=== PATIENT | female | born 1995 | race Caucasian/White ===

== ENCOUNTER 2017-01-12 22:03 | Emergency (ER) | payer OTHER ==
[2017-01-12 22:16] VITALS: BMI 23.3
--- NOTE | 2017-01-12 22:27 | PDOC ---
History of Present Illness - General History Source: Patient <Kenn Erickson - Last Filed: 01/13/17 01:09> - General History Source: Patient Exam Limitations: No Limitations - History of Present Illness Initial Comments: 01/12/17 22:35 The patient is a 21 year old female () with no significant past medical history who presents to the ED for 1 day of vaginal bleeding. Patient reports her LMP was November 01. States she noted vaginal bleeding yesterday. She was seen at an outside hospital yesterday where she had a vaginal ultrasound done and was told they did not visualize a fetus. Patient presents here today because her vaginal bleeding has slightly increased with slightly pelvic pain. Denies vaginal discharge. Denies nausea, vomiting, or diarrhea. Patient has not followed-up with OPERATIONS EXECUTIVE yet. The patient denies fever, chills, cough, SOB, chest pain, and palpitations. Allergies: NKDA Social History: No alcohol, tobacco, or drug use reported. Past Surgical History: None reported PCP: Dr. Cynthia Pitts <Rosalinda Mojica - Last Filed: 01/13/17 01:10> - General Chief Complaint: Vaginal Bleeding Stated Complaint: VAGINAL BLEEDING/7 WKS Time Seen by Provider: 01/12/17 22:24 Past History - Past Medical History Other medical history: Pt denies - Psycho/Social/Smoking Cessation Hx Suicidal Ideation: No Smoking History: Never smoked Information on smoking cessation initiated: No Hx Alcohol Use: No Drug/Substance Use Hx: No Substance Use Type: None <Kenn Erickson - Last Filed: 01/13/17 01:09> <Rosalinda Mojica - Last Filed: 01/13/17 01:10> - Past Medical History Allergies/Adverse Reactions: Allergies Allergy/AdvReac Type Severity Reaction Status Date / Time No Known Allergies Allergy Verified 01/12/17 22:12 Home Medications: Ambulatory Orders NK [No Known Home Medication] 01/12/17 Review of Systems - Review of Systems Able to Perform ROS?: Yes Comments:: 01/12/17 22:36 CONSTITUTIONAL: Absent: fever, no chills, no fatigue EYES: Absent: visual changes ENT: Absent: ear pain, no sore throat CARDIOVASCULAR: Absent: chest pain, no palpitations RESPIRATORY: Absent: cough, no SOB GI: +pelvic pain Absent: no nausea, no vomiting, no constipation, no diarrhea GENITOURINARY: +vaginal bleeding Absent: dysuria, no frequency, no hematuria MUSCULOSKELETAL: Absent: back pain, no arthralgia, no myalgia SKIN: Absent: rash NEURO: Absent: headache <Rosalinda Mojica - Last Filed: 01/13/17 01:10> *Physical Exam - Vital Signs Last Vital Signs Temp Pulse Resp BP Pulse Ox 97.6 F 79 19 125/72 100 01/12/17 22:12 01/12/17 22:12 01/12/17 22:12 01/12/17 22:12 01/12/17 22:12 <Kenn Erickson - Last Filed: 01/13/17 01:09> - Vital Signs Last Vital Signs Temp Pulse Resp BP Pulse Ox 97.6 F 79 19 125/72 100 01/12/17 22:12 01/12/17 22:12 01/12/17 22:12 01/12/17 22:12 01/12/17 22:12 - Physical Exam Comments: 01/12/17 22:36 GENERAL: Well-appearing, well-nourished. No apparent distress. HEENT: Normocephalic, atraumatic. PERRL, EOM intact. CARDIOVASCULAR: Normal S1, S2. Regular rate and rhythm. PULMONARY: Clear to auscultation bilaterally. ABDOMEN: Soft, non-distended, non-tender. No rebound or guarding. PELVIC: Deferred to ultrasound. EXTREMITIES: Normal ROM in all four extremities. No gross deformities. SKIN: Warm, dry. No rash NEUROLOGICAL: No focal neurological deficits. <Rosalinda Mojica - Last Filed: 01/13/17 01:10> ED Treatment Course - LABORATORY CBC & Chemistry Diagram: 01/12/17 22:40 01/12/17 22:30 <Kenn Erickson - Last Filed: 01/13/17 01:09> - LABORATORY CBC & Chemistry Diagram: 01/12/17 22:40 01/12/17 22:30 - RADIOLOGY Radiograph Interpretation: 01/13/17 00:53 EXAM: Ultrasound OB transabdominal ultrasound OB transvaginal and duplex evaluation of the ovaries Reviewed by Imaging ammonium nitrate neutralizer: FINDINGS: There is an intrauterine gestational sac with small pole with crown rump length measurement of 0.54 cm corresponding to 6 weeks 2 days gestation. No heart motion detected at this time which may be due to early gestation. Recommend followup viability study. No evidence for ovarian torsion. <Rosalinda Mojica - Last Filed: 01/13/17 01:10> Medical Decision Making - Medical Decision Making 01/13/17 01:08 Dr. Erickson: The scribe's documentation has been prepared under my direction and personally reviewed by me in its entirery. I confirm that the note above accurately reflects all work, treatment, procedures, and medical decision making performed by me. Patient advised to follow-up ultrasound and hormone levels. <Kenn Erickson - Last Filed: 01/13/17 01:09> *DC/Admit/Observation/Transfer - Discharge Dispostion Admit: No <Kenn Erickson - Last Filed: 01/13/17 01:09> - Attestations Scribe Attestion: 01/13/17 01:09 Documentation prepared by Rosalinda Mojica, acting as medical planner for Kenn Erickson MD/DO. <Rosalinda Mojica - Last Filed: 01/13/17 01:10> Diagnosis at time of Disposition: Vaginal bleeding before 22 weeks gestation, Threatened - Discharge Dispostion Disposition: HOME - Referrals Referrals: Cynthia Casanova MD [Primary Care Provider] - Milo Diaz MD [Staff Physician] - - Patient Instructions Printed Discharge Instructions: DI for Threatened Additional Instructions: Please follow up with your parcel post officer in two days for re-evaluation of hormone and sonogram. Print Language: TELUGU
[2017-01-12 22:47] LABS: BASOPHIL 0.5 % (0-2.0); EOSINOPHIL 1.6 % (0-4.5); MCH 29.2 pg (25.7-33.7); MCHC 32.3 g/dl (32.0-36.0); MEAN CELL VOLUME 90.5 fl (80-96); MEAN PLT VOLUME 8.7 fl (7.5-11.1); NEUTROPHILS 71.7 % (42.8-82.8); PLATELET COUNT 341 K/MM3 (134-434); RDW 13.7 % (11.6-15.6); WHITE BLOOD COUNT 11.2 K/mm3 (4.0-10.0)
[2017-01-12 23:09] LABS: ALBUMIN 3.7 g/dl (3.4-5.0); ANION GAP 12 (8-16); CALCIUM 9.1 mg/dL (8.5-10.1); CO2 24 mmol/L (21-32); CREATININE 0.6 mg/dL (0.55-1.02); GLUCOSE,RANDOM 89 mg/dL (74-106); SGOT/AST 17 U/L (15-37); SGPT/ALT 26 U/L (12-78)
[2017-01-12 23:26] LABS: ALK PHOS 79 U/L (45-117); BILIRUBIN,TOTAL 0.6 mg/dL (0.2-1.0); TOT PROT 7.6 g/dl (6.4-8.2)
[2017-01-13 01:18] VITALS: BP 112/73; PULSE 84; TEMP 98.3
== END 2017-01-13 01:19 | disposition home or self-care (01) ==
LOC: JER 22:03
DX: O20.0 Threatened abortion (principal); Z3A.01 Less than 8 weeks gestation of pregnancy
CPT/HCPCS: 36415; 76817-TC; 80053; 84702; 85025; 86850; 86900; 86901; 99281-25

== ENCOUNTER 2020-02-25 23:01 | Emergency (ER) | payer OTHER ==
[2020-02-25 23:06] VITALS: BMI 27.3
--- NOTE | 2020-02-25 23:11 | PDOC ---
History of Present Illness - General Chief Complaint: Bite Stated Complaint: BUG BITE Time Seen by Provider: 02/25/20 23:07 History Source: Patient - History of Present Illness Initial Comments: 02/25/20 23:07 24 year old insect bite to the left forearm 4 DAYS AGO REPORTS REDNESS AND PAIN TO THE site. denies fever/ chills, no pmhx Past History - Medical History Allergies/Adverse Reactions: Allergies Allergy/AdvReac Type Severity Reaction Status Date / Time No Known Allergies Allergy Verified 01/12/17 22:12 Home Medications: Ambulatory Orders Cephalexin Monohydrate [Keflex -] 500 mg PO Q8H #30 capsule 02/25/20 Sulfamethoxazole/Trimethoprim [Bactrim Ds -] 1 tab PO BID #20 tablet 02/25/20 COPD: No - Psycho-Social/Smoking History Smoking History: Never smoked - Substance Abuse Hx (Audit-C & DAST Scrn) How often the patient has a drink containing alcohol: Never Score: In Men: 4 or > Positive; In Women: 3 or > Positive: 0 Screen Result (Pos requires Nsg. Audit-10AR): Negative In the last yr the pt used illegal drug/Rx for NonMed reason: No Score: Yes response is considered Positive: 0 Screen Result (Positive result requires Nsg. DAST-10): Negative Review of Systems - Review of Systems Able to Perform ROS?: Yes Is the patient limited Citizen Of [place] proficient: No Integumentary: Yes: Other (insect bite) *Physical Exam - Vital Signs Last Vital Signs Temp Pulse Resp BP Pulse Ox 100 F H 69 19 131/73 100 02/25/20 23:03 02/25/20 23:03 02/25/20 23:03 02/25/20 23:03 02/25/20 23:03 - Physical Exam General Appearance: Yes: Appropriately Dressed Integumentary: positive: Other (insect bite to l;eft forearm. warm to touch, no streaking, no foreign body ) Neurologic: positive: Fully Oriented, Alert, Normal Mood/Affect ED Progress Note - Progress Note Progress Note: 02/26/20 06:00 A: cellulitis left forearm P: cephalexin/ bactrim ibuprofen PCP follow up in 2 days. Discharge - Discharge Information Problems reviewed: Yes Clinical Impression/Diagnosis: Insect bite Qualifiers: Encounter type: initial encounter Site of insect bite: forearm Laterality: left Qualified Code(s): S50.862A - Insect bite (nonvenomous) of left forearm, initial encounter Infected insect bite Qualifiers: Encounter type: initial encounter Qualified Code(s): W57.XXXA - Bitten or stung by nonvenomous insect and other nonvenomous arthropods, initial encounter Disposition: HOME - Additional Discharge Information Prescriptions: Sulfamethoxazole/Trimethoprim [Bactrim Ds -] 1 tab PO BID #20 tablet Cephalexin Monohydrate [Keflex -] 500 mg PO Q8H #30 capsule - Follow up/Referral - Patient Discharge Instructions Patient Printed Discharge Instructions: DI for Insect Bites and Stings Additional Instructions: apply warm compress to the area take cephalexin as prescribed follow up with your doctor in 2 days for a wound check return to the ER for any worsening symptoms./ - Post Discharge Activity
[2020-02-25] MEDS ORDERED: CEPHALEXIN MONOHYDRATE 500 MG CAPSULE (UD) PO ONE (23:18)
[2020-02-25] MEDS ORDERED: ACETAMINOPHEN 325 MG TABLET (FP) PO ONE (23:18)
[2020-02-25] MEDS ORDERED: SULFAMETHOXAZOLE/TRIMETHOPRIM 800MG/160MG D.S. TABLET PO ONE (23:41)
[2020-02-25] MEDS ORDERED: CEPHALEXIN MONOHYDRATE 500 MG CAPSULE (UD) ONE (23:50)
[2020-02-25] MEDS ORDERED: ACETAMINOPHEN 325 MG TABLET (FP) ONE (23:50)
[2020-02-25] MEDS ORDERED: SULFAMETHOXAZOLE/TRIMETHOPRIM 800MG/160MG D.S. TABLET ONE (23:51)
[2020-02-26 00:32] VITALS: BP 116/75; PULSE 70; TEMP 98.4
== END 2020-02-25 23:57 | disposition home or self-care (01) ==
LOC: JER 23:01
DX: S50.862A Insect bite (nonvenomous) of left forearm, initial encounter (principal); W57.XXXA Bitten or stung by nonvenomous insect and other nonvenomous arthropods, initial encounter
CPT/HCPCS: 99283-25

== ENCOUNTER 2020-02-29 01:51 | Emergency (ER) | payer OTHER ==
[2020-02-29 02:23] VITALS: BP 127/70; PULSE 97; TEMP 99.5; BMI 32.7
--- NOTE | 2020-02-29 03:03 | PDOC ---
History of Present Illness - General Chief Complaint: Cold Symptoms Stated Complaint: FEVER History Source: Patient Exam Limitations: Language Barrier - History of Present Illness Initial Comments: 02/29/20 03:03 24y F with no significant PMH presenting to the ER for subjective fevers for 3 days. Pt states fever started on the day she got a bug bite for which she was evaluated here. The fever was around 100 but since then she has not checked. She states the pain in the arm where she got the bite has gone down. Endorses sore throat but denies neck pain, headache, congestion, cough, chest pain, sob, headaches, abdominal pain, n/v/d, dysuria. No sick contacts. She was prescribed antibiotics but she only took one dose because she thought she could not take it with ibuprofen. Past History - Medical History Allergies/Adverse Reactions: Allergies Allergy/AdvReac Type Severity Reaction Status Date / Time No Known Allergies Allergy Verified 02/29/20 02:19 Home Medications: Ambulatory Orders Cephalexin Monohydrate [Keflex -] 500 mg PO Q8H #30 capsule 02/25/20 Sulfamethoxazole/Trimethoprim [Bactrim Ds -] 1 tab PO BID #20 tablet 02/25/20 COPD: No - Psycho-Social/Smoking History Smoking History: Never smoked Have you smoked in the past 12 months: No Information on smoking cessation initiated: No - Substance Abuse Hx (Audit-C & DAST Scrn) How often the patient has a drink containing alcohol: Never Score: In Men: 4 or > Positive; In Women: 3 or > Positive: 0 Screen Result (Pos requires Nsg. Audit-10AR): Negative In the last yr the pt used illegal drug/Rx for NonMed reason: No Score: Yes response is considered Positive: 0 Screen Result (Positive result requires Nsg. DAST-10): Negative Review of Systems - Review of Systems Constitutional: Yes: See HPI, Fever. No: Loss of Appetite, Malaise, Night Sweats HEENTM: No: Symptoms Reported Respiratory: No: Symptoms reported Cardiac (ROS): No: Symptoms Reported ABD/GI: No: Symptoms Reported Musculoskeletal: No: Symptoms Reported Integumentary: Yes: See HPI Neurological: No: Symptoms reported *Physical Exam - Vital Signs Last Vital Signs Temp Pulse Resp BP Pulse Ox 99.5 F 97 H 20 127/70 98 02/29/20 02:19 02/29/20 02:19 02/29/20 02:19 02/29/20 02:19 02/29/20 02:19 - Physical Exam General Appearance: Yes: Nourished, Appropriately Dressed. No: Apparent Distress HEENT: positive: EOMI, SHEA. negative: Scleral Icterus (R), Scleral Icterus (L) Neck: positive: Trachea midline, Supple. negative: Lymphadenopathy (R), Lymphadenopathy (L) Respiratory/Chest: positive: Lungs Clear, Normal Breath Sounds. negative: Crackles, Rales, Rhonchi, Stridor, Wheezing Cardiovascular: positive: Regular Rhythm, Regular Rate, S1, S2. negative: Edema, JVD, Murmur Comments:: 02/29/20 06:47 radial pulses 2+ Gastrointestinal/Abdominal: positive: Normal Bowel Sounds, Soft. negative: Tender Musculoskeletal: negative: CVA Tenderness Extremity: positive: Normal Capillary Refill Integumentary: positive: Normal Color, Dry, Warm, Other (small area of 5mm round erythema with central scab on L forearm. no fluctuance, no tracking. ) Neurologic: positive: rn radiation oncology II-XII NML intact, Fully Oriented, Alert, Normal Mood/Affect, Normal Response, Motor Strength 5/5 Medical Decision Making - Medical Decision Making 02/29/20 03:05 24y F with no pmh presenting to ER for subjective fevers. was seen here 3 days ago for a bug bite for which she was prescribed antibiotics. vitals: wnl, afebrile pe: 5mm area of erythema with central scab on L forearm; no tracking or ascending/descending redness, no fluctuance, no drainage. OP is normal, no erythema or exudates, no cervical lymphadenopathy. lungs cta, soft abdomen. low suspicion for strep throat. pt is well appearing, NAD. does not require labs or imaging at this time. Advised pt to take medications as directed. Return precautions provided. Pt and family member understand and agree to plan. will dc home. Discharge - Discharge Information Problems reviewed: Yes Clinical Impression/Diagnosis: Bug bite Qualifiers: Encounter type: subsequent encounter Qualified Code(s): W57.XXXD - Bitten or stung by nonvenomous insect and other nonvenomous arthropods, subsequent encounter Fever Qualifiers: Fever type: unspecified Qualified Code(s): R50.9 - Fever, unspecified Condition: Good Disposition: HOME - Admission No - Follow up/Referral - Patient Discharge Instructions Additional Instructions: Hoy te vieron en la elena de emergencias por fiebre. La picadura del insecto no parece muy infectada. Recomiendo nathalie los antibiticos segn las indicaciones. Puedes tomarlo con ibuprofeno y Tylenol. Mantente octavio hidratado. Controle matthews temperatura en casa si siente que tiene fiebre. Regrese a la elena de emergencias si contina teniendo fiebre incluso despus de terminar los antibiticos, si el jessica de la [place] se est agrandando o enrojeciendo, tiene dificultad para respirar o si se desarrolla algn sntoma nuevo o preocupante. Demetri You were seen in the ER today for fevers. The bug bite does not look very infected. I recommend taking the antibiotics as directed. You can take it with the ibuprofen and Tylenol. Stay well hydrated. Check your temperature at home if you feel like you are having a fever. Come back to the ER if you continue to have the fever even after finishing the antibiotics, if the area of the bite is getting bigger or more red, you have difficulty breathing, or if any new or concerning symptom develops. Thank you - Post Discharge Activity
--- NOTE | 2020-02-29 03:03 | PDOC ---
Attending Attestation - Resident Resident Name: Lisa Jiang - ED Attending Attestation I have performed the following: I have examined & evaluated the patient, The case was reviewed & discussed with the resident, I agree w/resident's findings & plan, Exceptions are as noted - HPI HPI: 02/29/20 07:19 See resident HPI - Physicial Exam PE: 02/29/20 07:20 Agree with documented exam - Medical Decision Making 02/29/20 07:20 Healing bug bite, low concern for cellulitis, abscess Sore throat without worrisome features dc with reassurance Discharge - Discharge Information Problems reviewed: Yes Clinical Impression/Diagnosis: Bug bite Qualifiers: Encounter type: subsequent encounter Qualified Code(s): W57.XXXD - Bitten or stung by nonvenomous insect and other nonvenomous arthropods, subsequent encounter Fever Qualifiers: Fever type: unspecified Qualified Code(s): R50.9 - Fever, unspecified Condition: Good Disposition: HOME - Follow up/Referral - Patient Discharge Instructions Additional Instructions: Hoy te vieron en la elena de emergencias por fiebre. La picadura del insecto no parece muy infectada. Recomiendo nathalie los antibiticos segn las indicaciones. Puedes tomarlo con ibuprofeno y Tylenol. Mantente octavio hidratado. Controle matthews temperatura en casa si siente que tiene fiebre. Regrese a la elena de emergencias si contina teniendo fiebre incluso despus de terminar los antibiticos, si el jessica de la [place] se est agrandando o enrojeciendo, tiene dificultad para respirar o si se desarrolla algn sntoma nuevo o preocupante. Demetri You were seen in the ER today for fevers. The bug bite does not look very infected. I recommend taking the antibiotics as directed. You can take it with the ibuprofen and Tylenol. Stay well hydrated. Check your temperature at home if you feel like you are having a fever. Come back to the ER if you continue to have the fever even after finishing the antibiotics, if the area of the bite is getting bigger or more red, you have difficulty breathing, or if any new or concerning symptom develops. Thank you - Post Discharge Activity
== END 2020-02-29 04:04 | disposition home or self-care (01) ==
LOC: JER 01:51
DX: R50.9 Fever, unspecified (principal); W57.XXXD Bitten or stung by nonvenomous insect and other nonvenomous arthropods, subsequent encounter
CPT/HCPCS: 99283-25